=== PATIENT | female | born 1995 | race African-American/Black ===

== ENCOUNTER 2021-08-08 10:11 | Emergency (ER) | payer SELFPAY ==
[2021-08-08] MEDS ORDERED: Ketorolac 30 MG/ML SDV IM ONE (10:56)
[2021-08-08] MEDS ORDERED: Acetaminophen 325 MG Tab PO ONE (10:56)
--- NOTE | 2021-08-08 11:04 | EDM.PDOC ---
ED HPI GENERAL MEDICAL PROBLEM - General Chief Complaint: Back Pain or Injury Stated Complaint: BACK PAIN Time Seen by Provider: 08/08/21 10:40 Source of Information: Reports: Patient History Limitations: Reports: No Limitations - History of Present Illness INITIAL COMMENTS - FREE TEXT/NARRATIVE: Patient 25-year-old female no significant past medical history presenting with a chief complaint of low back pain. Patient reports 3-day history of right-sided low back pain which feels like a stabbing. Patient states it feels better when she leans forward. Patient finds no relief with sleeping with a pillow between her legs. Patient denies any numbness, tingling in her groin or legs. Denies any urinary symptoms. Last menstrual period was on 18 July. Denies any fevers, weakness, IV drug abuse. No recent injuries. Pain rated as moderate to severe. Right Lower Back Pain Score (Numeric/FACES): 10 - Related Data Allergies Allergy/AdvReac Type Severity Reaction Status Date / Time No Known Allergies Allergy Verified 08/08/21 10:27 Home Meds: Home Meds cephALEXin [Keflex] 500 mg PO Q8H #15 cap 08/08/21 [Rx] Past Medical History - Past Health History Medical/Surgical History: Denies Medical/Surgical History Social & Family History - Tobacco Use Tobacco Use Status *Q: Current Every Day Tobacco User Years of Tobacco use: 11 Packs/Tins Daily: 0.5 Used Tobacco, but Quit: No Second Hand Smoke Exposure: No - Caffeine Use Caffeine Use: Reports: Coffee, Energy Drinks, Soda, Tea - Recreational Drug Use Recreational Drug Use: No ED ROS GENERAL - Review of Systems Review Of Systems: See Below Free Text/Narrative/Comment: In addition to that documented in the HPI above, the additional ROS was obtained: Constitutional: Denies fevers or chills Eyes: Denies vision changes ENMT: Denies sore throat CV: Denies chest pain Resp: Denies SOB GI: Denies vomiting or diarrhea : Denies painful urination MSK: Denies recent trauma Skin: Denies new rashes Neuro: Denies new numbness or tingling or weakness Endocrine: Denies unexpected weight loss Heme: Denies bleeding disorders ED EXAM,LOWER BACK PAIN/INJURY - Physical Exam Exam: See Below Text/Narrative:: I have reviewed the triage vital signs Const: Well nourished, well developed, appears stated age Eyes: Pupils Equal and reactive to light bilaterally, no conjunctival injection HENT: No signs of trauma or swelling, Neck supple without meningismus CV: Regular Rate Rhythm, Warm, well-perfused extremities RESP: Unlabored respiratory effort GI: soft, non-tender, non-distended, no masses MSK: No midline spinal tenderness. No gross deformities appreciated Skin: Warm, dry. No rashes Neuro: Alert, emt basic II-XII grossly intact. Sensation and motor function of lower extremities is intact. Psych: Appropriate mood and affect. Course - Vital Signs Last Recorded V/S: Last Vital Signs Temp 36.4 C 08/08/21 10: Pulse 87 08/08/21 10:27 Resp 16 08/08/21 10:27 BP 103/90 08/08/21 10: Pulse Ox 99 08/08/21 10:27 - Orders/Labs/Meds Labs: Laboratory Tests 08/08/21 08/08/21 Range/Units 11:45 11:50 Urine Color Yellow (Yellow) Urine Appearance Clear (Clear) Urine pH 6.0 (5.0-8.0) Ur Specific [place] 1.025 (1.005-1.030) Urine Protein Negative (Negative) Urine Glucose (UA) Negative (Negative) Urine Ketones Negative (Negative) Urine Occult Blood Trace-lysed H (Negative) Urine Nitrite Positive H (Negative) Urine Bilirubin Negative (Negative) Urine Urobilinogen 0.2 (0.2-1.0) Ur Leukocyte Esterase Trace H (Negative) Urine RBC 0-5 (0-5) /hpf Urine WBC 5-10 H (0-5) /hpf Ur Squamous Epith Cells 0-5 (0-5) /hpf Urine Bacteria Few (FEW) /hpf Urine Mucus Few (FEW) /hpf Urine HCG, Qual Negative (NEGATIVE) Meds: Medications Discontinued Medications Generic Name Dose Route Start Last Admin Trade Name Freq PRN Reason Stop Dose Admin Acetaminophen 650 mg 08/08/21 10:56 08/08/21 11:36 Acetaminophen 325 Mg Tab PO 08/08/21 10:57 650 mg NOW ONE Administration Ketorolac Tromethamine 30 mg 08/08/21 10:56 08/08/21 11:36 Ketorolac 30 Mg/Ml Sdv IM 08/08/21 10:57 30 mg ONETIME ONE Administration Departure - Departure Time of Disposition: 13:13 Disposition: DC/Tfer to [facility] 03 Clinical Impression: UTI (urinary tract infection), Back pain - Discharge Information Prescriptions: cephALEXin [Keflex] 500 mg PO Q8H #15 cap Instructions: Urinary Tract Infection, Adult Referrals: PCP,None [Primary Care Provider] - Forms: ED Department Discharge, ED Return to Work/School Form Additional Instructions: Please take full course of antibiotics. Return to the emergency room should your symptoms worsen or you have any other emergent concerns. Please follow-up with your primary care physician on Wednesday. Use ibuprofen and/or Tylenol every 8 hours for pain relief. Sepsis Event Note (ED) - Evaluation Sepsis Screening Result: No Definite Risk - Focused Exam Vital Signs: Vital Signs Temp Pulse Resp BP Pulse Ox 08/08/21 10:27 36.4 C 87 16 103/90 99 - Assessment/Plan Assessment:: Patient is 25-year-old female presenting to the emergency room with a chief complaint of right lower back pain. Patient symptoms improved with administration of Toradol and acetaminophen in the emergency room. Work-up demonstrates evidence of urinary tract infection with trace blood. test negative. Differential diagnosis considered for this patient include kidney stone, pyelonephritis, UTI, musculoskeletal strain, cauda equina syndrome. Signs and symptoms are not concerning for cauda equina. Was trace blood and patient not being on her period, a CT scan of the abdomen pelvis was ordered however patient refused this stating she wanted to go with her primary care physician as she is feeling better. I have explained risks and benefits to her. Patient will be discharged in stable condition. We will initiate antibiotics here for UTI.
== END 2021-08-08 14:10 | disposition home or self-care (01) ==
LOC: JD.ED 10:11
DX: N39.0 Urinary tract infection, site not specified (principal); M54.50 Low back pain, unspecified; Z72.0 Tobacco use
CPT/HCPCS: 81001; 81025; 96372; 99283; A9270; J1885